=== PATIENT | male | born 1955 ===

== ENCOUNTER 2025-04-11 22:05 | Emergency (ER) | payer MEDICARE ==
[2025-04-12 00:06] VITALS: BP 115/86; PULSE 89
== END 2025-04-11 23:00 | disposition home or self-care (01) ==
LOC: LB.ED 22:05 → EDSEX 22:05 → LB.ED 23:00
DX: S43.014A Anterior dislocation of right humerus, initial encounter (principal); X58.XXXA Exposure to other specified factors, initial encounter
CPT/HCPCS: 23650; 73030-RT; 99283; 99283-25